=== PATIENT | female | born 1990 | race Caucasian/White ===

== ENCOUNTER → 2017-12-11 16:30 | Outpatient (CLI) | payer OTHER, SELFPAY ==
[2017-12-11 17:25] LABS: Add Manual Diff / Slide Review NO; Basophils Percent Auto 0.3 % (0-2); Eosinophils Percent Auto 1.4 % (2-4); Hematocrit 36.5 % (36-46); Hemoglobin 12.9 g/dL (12.0-16.0); Lymphocytes Percent Auto 18.2 % (25-40); Mean Corpuscular HGB Conc 35.3 % (30-36); Mean Corpuscular Hemoglobin 29.7 PG (26-34); Mean Corpuscular Volume 84.3 fL (80-100); Monocytes Percent Auto 5.7 % (3-14); Neutrophils Absolute Auto 7400 /uL (3000-5900); Neutrophils Percent Auto 74.4 % (50-75); Platelet Count 219 X10^3/uL (150-400); Red Blood Cell Count 4.33 X10^6/uL (4.0-5.2); Red Cell Distribution Width 12.7 % (11.6-14.8); White Blood Cell Count 9.9 X10^3/uL (4.5-11.0)
[2017-12-11 18:30] LABS: Hepatitis B Surface Antigen NEGATIVE s/c (NEGATIVE); Rubella Antibody IgG 18.3 IU/mL (>15)
[2017-12-11 18:35] LABS: HIV 1 and 2 Antibody NEGATIVE (NEGATIVE); Hep C Virus Ab w/Reflex Quant NEGATIVE s/c (NEGATIVE)
[2017-12-13 15:09] LABS: HSV 2 IGG AB < 0.90 index (< 0.90); HSV1IGG 5.46 index (< 0.90)
[2017-12-16 15:42] LABS: Rapid Plasma Reagin NON REACTIVE
== END ==
PROVIDERS: Visit Provider Obstetrics & Gynecology
DX: Z34.81 Encounter for supervision of other normal pregnancy, first trimester (principal)
CPT/HCPCS: 36415; 80055; 86695; 86696; 86703; 86787; 86803; 86850; 86900; 86901; 87077; 87086

== ENCOUNTER → 2018-01-16 16:45 | Outpatient (CLI) | payer OTHER, SELFPAY ==
[2018-01-23 09:16] LABS: AFP, Serum 44.1 ng/mL; Calc Gestational Age 18.9; Cigarette Smoker NOT GIVEN; Donated Egg N; Donor Egg Age NOT GIVEN; Estriol, Free 1.78 ng/mL; Inhibin A, Dimeric 143 pg/mL; Maternal Ethnicity NOT GIVEN; Maternal Weight 203 lbs; Number of Fetuses NOT GIVEN; Previous Pregnancy Down Syndro N; hCG, MoM 0.87; hCG, Serum 15.9 IU/mL
== END ==
PROVIDERS: Visit Provider Obstetrics & Gynecology
DX: Z34.92 Encounter for supervision of normal pregnancy, unspecified, second trimester (principal)
CPT/HCPCS: 36415; 82105; 82677; 84702; 86336

== ENCOUNTER → 2018-02-03 09:09 | Outpatient (CLI) | payer OTHER, SELFPAY ==
--- NOTE | 2018-02-03 09:11 | DI.US.S_ITS ---
PROCEDURE: US OB >= 14 WEEKS FETUS INDICATIONS: 20 WEEK ANATOMY SURVEY OUTSIDE/PRIOR DATING DATA: Last menstrual period (LMP): Not available. LMP-based estimated date of delivery (ISIDRA): 06/13/18. First dating scan (date and location): 11/13/17, by Dr. Kirkpatrick Estimated date of delivery (ISIDRA) from first dating scan: 06/12/18. TECHNIQUE: Real-time scanning was performed of the fetus, with image documentation and biometric measurements. Endovaginal scanning: Not needed for this study. COMPARISON: [facility], , OB >= 14 WEEKS FETUS, 01/16/2018, 16:38. [facility], OB >= 14 WEEKS FETUS, 12/11/2017, 16:20. FINDINGS: General: A single living intrauterine gestation is present. Presentation: Vertex. Placenta: A placenta is circumflex valley at the superior aspect, without previa. Amniotic fluid index: 11.7 cm, normal range is 5-24 cm. heart rate: 149 beats per minute. Maternal cervical canal: 3.7 cm long. Normal lower limit is 2.5 cm. biometrics: Biparietal diameter: 5.3 cm, 22 weeks 0 days Head circumference: 19.3 cm, 21 weeks 4 days Abdominal circumference: 16.4 cm, 21 weeks 3 days Femur length: 3.6 cm, 21 weeks 2 days Estimated gestational age from initial scan: 21 weeks 4 days Composite gestational age from present scan: 21 weeks 4 days Estimated weight and percentile: 421 g, 35th percentile Measurement variability for biometric dating: +/- 7 days from 14 weeks to 15 weeks 6 days gestation, +/- 10 days from 16 weeks to 21 weeks 6 days gestation, +/- 2 weeks from 22 weeks to 27 weeks 6 days gestation, +/- 3 weeks for 28 weeks gestation or later. weight reference: 4500 g or EFW >90/95% is considered macrosomia or large for gestational age. EFW <10% is small for gestational age. EFW 5% or less is considered intra-uterine growth restriction. Anatomic survey: Neuro: Ventricles are non-dilated at less than 10 mm. Cisterna magna is normal at 3-11 mm. Cerebellum is normal in size and morphology. Nuchal skin fold: Normal at less than 6 mm between 14-21 weeks gestational age. Face: Nose and lips, facial profile are not well seen due to positioning. Spine: No evidence for spina bifida. Heart: 4-chambered heart is present, with normal ventricular outflow tracts. Diaphragm: Diaphragm is intact. Stomach: Left-sided stomach is present. Kidneys: No hydronephrosis. Normal is less than 5 mm in 2nd trimester, less than 7 mm in 3rd trimester. Cord: 3-vessel cord has orthotopic insertion. Bladder: Normal in size. Extremities: All 4 extremities identified. IMPRESSION: The superior aspect of the placenta shows circumvallate morphology. No placenta previa or placental abruption is found. Appropriate interval growth, no anomaly is seen but the facial area is poorly visualized due to positioning and followup limited OB ultrasound may be warranted to complete anatomic survey. The delivery date is projected to be centered on 06/12/18, plus or -5 days. Dictated by: Nikhil Sharif M.D. on 02/03/2018 at 11:03 Approved by: Nikhil Sharif M.D. on 02/03/2018 at 11:37
== END ==
PROVIDERS: Visit Provider Obstetrics & Gynecology
DX: Z36.89 Encounter for other specified antenatal screening (principal); Z3A.21 21 weeks gestation of pregnancy
CPT/HCPCS: 76811

== ENCOUNTER 2020-09-18 18:24 | Emergency (ER) | payer OTHER, SELFPAY ==
[2020-09-18 18:55] VITALS: BP 124/78; PULSE 71; RESP 20; TEMP 36.6; O2SAT 100; BMI 29.0
--- NOTE | 2020-09-18 19:00 | DI.RAD.S_ITS ---
PROCEDURE: XR FINGER LT MIN 2V INDICATIONS: slammed in car door TECHNIQUE: AP hand, 2 views of the left thumb acquired. COMPARISON: None. FINDINGS: Bones: No fractures or dislocations. No suspicious bony lesions. Soft tissues: No suspicious soft tissue calcifications. IMPRESSION: No evidence acute bony abnormality of the left thumb Dictated by: Sorin Sanchez M.D. on 09/18/2020 at 19:48 Approved by: Sorin Sanchez M.D. on 09/18/2020 at 19:49
--- NOTE | 2020-09-18 19:14 | PC.NURSE ---
today nurse crushed her finger in the door. she has slight numbness in her thumb and slight bruising. She has not taken any medication for today. She states that her pain in an 5/10 pain with intermittent spurts of 8/10 pain.
--- NOTE | 2020-09-18 20:37 | ED.UPPEXIN ---
HPI - Extremity Injury (Upper) General Chief Complaint: Extremity Injury, Upper Stated Complaint: SMASHED LT THUMB IN CAR DOOR Time Seen by Provider: 09/18/20 20:34 Source: patient Mode of arrival: Ambulatory Limitations: no limitations History of Present Illness HPI narrative: 30-year-old woman with no significant medical history who smashed her left thumb in the car door. She is right hand dominant. The thumb is increasingly tender and she comes in for reassurance that there are no broken bones. Related Data Previous Rx's Medication Instructions Recorded etonogestrel-ethinyl estradiol 1 icr VG Q 3 WEEKS #30 vag ring 07/10/16 [NuvaRing] Allergies Allergy/AdvReac Type Severity Reaction Status Date / Time No Known Drug Allergies Allergy Unknown Unverified 08/07/17 12:31 Review of Systems Review of Systems Narrative: Pertinent positive and negative findings as per HPI Remainder of review of systems is otherwise unremarkable for Constitutional: Fevers, chills, weakness ENT: No sore throat, neck pain, ear pain CV: Chest pain, palpitations, Respiratory: Cough, wheeze, dyspnea GI: Nausea, vomiting, diarrhea, : Dysuria, hematuria, Patient History Surgical History (Updated 11/07/17 @ 11:35 by Olga Bryant) Status post laparoscopic cholecystectomy (~2007) Social History Smoking Status: Never smoker Smoking Status: Never smoker alcohol intake frequency: 0-2 drinks per day Substance Use Type: does not use Exam Narrative Exam Narrative: General: Alert appropriate in no acute distress Respiratory: Able to speak in full sentences, no obvious respiratory distress Skin: No obvious rashes, warm and dry Neurologic: Grossly intact no obvious asymmetries or abnormalities Psych: appropriate insight and affect, cooperative Extremity: Minor contusion to the base of the left thumb over the nail bed, neurovascularly intact distal. Minimal edema Initial Vital Signs Initial Vital Signs: Vital Signs Temperature 97.9 F 09/18/20 18:55 Pulse Rate 71 09/18/20 18:55 Respiratory Rate 20 09/18/20 18:55 Blood Pressure 124/78 09/18/20 18:55 Pulse Oximetry 100 09/18/20 18:55 Course Orders Ordered: ED Orders 09/18/20 19:00 XR finger LT min 2V Stat Discontinued Medications Acetaminophen (Acetaminophen 325 Mg Tablet) 325 mg PO NOW ONE Stop: 09/18/20 20:40 Last Admin: 09/18/20 20:51 Dose: 325 mg Documented by: MELVA Ibuprofen (Ibuprofen 400 Mg Tablet) 400 mg PO NOW ONE Stop: 09/18/20 20:40 Last Admin: 09/18/20 20:51 Dose: 400 mg Documented by: MELVA Vital Signs Vital signs: Vital Signs - 8 hr 09/18/20 20:56 Pulse Rate 74 Respiratory Rate 12 Blood Pressure 122/71 Pulse Oximetry 74 L MDM - Extremity Injury (Upper) Imaging Data X-ray thumb: Radiologist's Impression: FINDINGS: Bones: No fractures or dislocations. No suspicious bony lesions. Soft tissues: No suspicious soft tissue calcifications. IMPRESSION: No evidence acute bony abnormality of the left thumb Dictated by: Sorin Sanchez M.D. on 09/18/2020 at 19:48 MDM Narrative Medical decision making narrative: 30-year-old woman with a thumb injury after slamming it in her car door. No fractures. Aluminum splint is placed over her thumb for comfort. She is safe for home discharge Discharge Plan Departure Patient Disposition: Home Clinical Impression: Finger injury Qualifiers: Encounter type: initial encounter Laterality: left Qualified Code(s): S69.92XA - Unspecified injury of left wrist, hand and finger(s), initial encounter Instructions: DI for Finger Sprain Activity Restrictions/Additional Instructions: Thank you for coming in today You did not break any bones in your thumb. The area clearly is irritated and using the small splint that we made will be helpful so that you simply do not continue hitting the area and causing herself discomfort. Use the splint as long as it is comfortable and helping. With the injury to the active growing part of the nail bed, you may notice some abnormalities with your thumb nail as it grows out. Using 400 mg of ibuprofen (2 mnkz-qwq-kkztuww pills) and 1 Tylenol every 6 hours can be very helpful in controlling pain. If your noticing new or worsening symptoms, please feel free to return to the ER Prescriptions: No Action etonogestrel-ethinyl estradiol [NuvaRing] 1 EACH ring 1 icr VG Q 3 WEEKS Qty: 30 RF: 3
[2020-09-18] MEDS: IBUPROFEN 400 MG TABLET PO (20:51)
[2020-09-18] MEDS: ACETAMINOPHEN 325 MG TABLET PO (20:51)
[2020-09-18 20:56] VITALS: BP 122/71; PULSE 74; RESP 12; O2SAT 74
== END 2020-09-18 20:57 | disposition home or self-care (01) ==
PROVIDERS: Emergency Provider Emergency Medicine
DX: S69.92XA Unspecified injury of left wrist, hand and finger(s), initial encounter (principal); W23.0XXA Caught, crushed, jammed, or pinched between moving objects, initial encounter
CPT/HCPCS: 29130; 73140; 99283

== ENCOUNTER 2021-07-20 16:58 | Emergency (ER) | payer OTHER, SELFPAY ==
[2021-07-20 17:12] VITALS: BP 124/58; PULSE 66; RESP 16; TEMP 36.8; O2SAT 97; BMI 30.7
--- NOTE | 2021-07-20 18:08 | DI.RAD.S_ITS ---
PROCEDURE: XR TIBIA FIBULA LT 2V INDICATIONS: felt pop in back of calf with walking, now pain TECHNIQUE: 2 views of the tibia and fibula were acquired. COMPARISON: None. FINDINGS: Bones: No fractures or dislocations. No suspicious bony lesions. Soft tissues: No suspicious soft tissue calcifications or masses. IMPRESSION: No osseous abnormality. Consider further evaluation with ultrasound of the calf. Dictated by: Tony Lees M.D. on 07/20/2021 at 18:31 Approved by: Tony Lees M.D. on 07/20/2021 at 18:33
--- NOTE | 2021-07-20 18:13 | ED_ITS ---
HPI - Extremity Injury (Lower) <RIKKI Abarca - Last Filed: 07/20/21 20:24> General Chief Complaint: Extremity Injury, Lower Stated Complaint: Howells something pop in left calf Time Seen by Provider: 07/20/21 18:01 Source: patient Mode of arrival: Ambulatory History of Present Illness HPI Narrative: 31-year-old female presents to the emergency department complaining of left calf pain after she got up from a desk in started walking and she felt a pop in her left calf with pain afterwards. She states it is dull and then it was burning pain, and now it feels like a muscle spasm. Patient denies any current antibiotic use, denies any changes to her ambulation, denies any weakness, denies any skin changes, states she also has pain on the lateral aspect of her left christopher. She denies any swelling in her lower extremity, states that she took ibuprofen prior to her arrival which helped a little bit. Patient states that she took a home test yesterday, and it was positive. Related Data Home Medications Medication Instructions Recorded Confirmed drospiren-paz.estrad-l.mefol 3 1 tab PO DAILY 03/29/21 03/29/21 mg-0.03 mg-0.451 mg(21)/0.451 mg(7)tablet Previous Rx's Medication Instructions Recorded lidocaine 5 % topical patch 1 patch TOPICAL DAILY #15 ea 07/20/21 (Lidoderm) Allergies Allergy/AdvReac Type Severity Reaction Status Date / Time Iodinated Contrast Media Allergy Severe Unconscious Verified 03/29/21 13:15 Review of Systems <RIKKI Abarca - Last Filed: 07/20/21 20:24> Review of Systems Narrative: General: denies fever, chills, malaise, sweats, fatigue Head/Neck: denies headache, neck pain, dizziness Eyes: denies visual changes, eye pain Cardio: denies chest pain, palpitations, edema Respiratory: denies dyspnea, cough, orthopnea GI: denies abdominal pain, nausea, vomiting, or diarrhea : denies dysuria, hematuria, urinary retention, frequency or incontinence MSK: denies joint pain, muscle weakness, endorses left calf pain and christopher pain Skin: denies rash, itching, skin lesions or other Neuro: denies numbness, tingling Patient History <RIKKI Abarca - Last Filed: 07/20/21 20:24> Medical History Spontaneous vaginal delivery Surgical History Status post laparoscopic cholecystectomy (~2007) Social History Smoking Status: Never smoker Smoking Status: Never smoker alcohol intake frequency: 0-2 drinks per day Substance Use Type: does not use Exam <RIKKI Abarca - Last Filed: 07/20/21 20:24> Narrative Exam Narrative: Independently reviewed vitals signs and nursing notes. General: cooperative, comfortable, in no acute distress, well developed and well groomed Head: atraumatic, symmetrical facial expressions Neck: supple, atraumatic, without lymphadenopathy. Eyes: pupils equal round and reactive, EOMI, conjunctiva normal Nose: nares patent, no rhinorrhea Mouth/Throat: uvula midline, moist mucus membranes Cardiovascular: regular rate and rhythm, no peripheral edema, warm extremities Respiratory: normal effort, able to speak in complete sentences, no audible wheezing, stridor, or rales. No retractions or tachypnea. GI: abdomen soft, nontender to palpation, nondistended, no masses, no exquisite tenderness with exam, without guarding or rebound. MSK: moves all extremities, ambulatory w/steady gait, neurovascularly intact, no weakness, negative Frederick sign, no dependent edema, patient has tenderness l ateral to or tibia and medial over the distal calf area. No discernible edema, no discoloration, Achilles tendon is nontender to palpation and feels intact. Skin: brisk capillary refill, no rash, no erythema Neuro: normal speech and cognition, A&O x3, normal tone Psych: mental status is grossly normal, congruent mood, normal affect, pleasant and cooperative Initial Vital Signs Initial Vital Signs: Vital Signs Temperature 98.3 F 07/20/21 17:12 Pulse Rate 66 07/20/21 17:12 Respiratory Rate 16 07/20/21 17:12 Blood Pressure 124/58 L 07/20/21 17:12 Pulse Oximetry 97 07/20/21 17:12 <Suzanne Haas DO - Last Filed: 07/29/21 08:50> Initial Vital Signs Initial Vital Signs: Vital Signs Temperature 98.3 F 07/20/21 17:12 Pulse Rate 66 07/20/21 17:12 Respiratory Rate 16 07/20/21 17:12 Blood Pressure 124/58 L 07/20/21 17:12 Pulse Oximetry 97 07/20/21 17:12 Course <RIKKI Abarca - Last Filed: 07/20/21 20:24> Orders Ordered: Discontinued Medications Lidocaine (Lidocaine Patch 1 Each Adh..Patch) 1 each TOP NOW ONE Stop: 07/20/21 18:12 Last Admin: 07/20/21 18:15 Dose: 1 each Documented by: MAUREEN Vital Signs Vital signs: Vital Signs - 8 hr 07/20/21 17:12 Temperature 98.3 F Pulse Rate 66 Respiratory Rate 16 Blood Pressure 124/58 L Pulse Oximetry 97 <Suzanne Haas DO - Last Filed: 07/29/21 08:50> Orders Ordered: Discontinued Medications Lidocaine (Lidocaine Patch 1 Each Adh..Patch) 1 each TOP NOW ONE Stop: 07/20/21 18:12 Last Admin: 07/20/21 18:15 Dose: 1 each Documented by: MAUREEN Vital Signs Vital signs: Vital Signs - 8 hr 07/20/21 17:12 Temperature 98.3 F Pulse Rate 66 Respiratory Rate 16 Blood Pressure 124/58 L Pulse Oximetry 97 MDM - Extremity Injury (Lower) <RIKKI Abarca - Last Filed: 07/20/21 20:24> Imaging Data Extremity x-ray #1: Radiologist's Impression: PROCEDURE:? XR TIBIA FIBULA LT 2V ? INDICATIONS:? felt pop in back of calf with walking, now pain ? TECHNIQUE:? 2 views of the tibia and fibula were acquired.? ? COMPARISON:? None. ? FINDINGS:? ? Bones:? No fractures or dislocations.? No suspicious bony lesions.? ? Soft tissues:? No suspicious soft tissue calcifications or masses.? ? IMPRESSION:? No osseous abnormality. ? Consider further evaluation with ultrasound of the calf.? ? Dictated by: Tony Lees M.D. on 07/20/2021 at 18:31 ? ? Approved by: Tony Lees M.D. on 07/20/2021 at 18:33 ? MDM Narrative Medical decision making narrative: 31-year-old female presents to the emergency department complaining of right calf pain when she stood up from her desk and started walking today, she states it felt like a pop. She has been ambulatory, denies significant pain at this time, only complainsof dull sensation similar to a charley horse. X-ray of patient's patient's left tib fib was negative for acute fracture dislocation, suspicious soft tissue calcifications, or air. Patient did not have any palpable lump, fluctuance, erythema, discoloration. Patient is ambulatory, without any range of motion or activity limitations. Took ibuprofen prior to arrival. Give patient a lidocaine patch, she tested positive for yesterday on a home test, no other medications were given, recommend patient not taking any NSAIDs throughout the duration of her . This is an L and I: L and I claim #[id number]. Patient does not have a primary care provider, she was given a referral to establish 1, encouraged to follow up to get at referral for physical therapy. Patient understands and will do so accordingly. Patient is appropriate and amenable to discharge home. Vital signs are stable on repeat examination is unremarkable. Patient has been informed of results. Patient has been given strict return to ER precautions for any new or worsening symptoms. Patient understands to follow up closely with outpatient providers as instructed. Patient understands plan and agrees to discharge home. All questions and concerns answered at this time. Discharge Plan Departure Patient Disposition: Home Clinical Impression: Work related injury, Strain of left calf muscle Instructions: Calf Muscle Strain Activity Restrictions/Additional Instructions: *You have been diagnosed with most likely a strained calf muscle. This could also be something like christopher splints which is at medial tibial stress syndrome. This is usually treated with anti-inflammatories, ice, rest and sometimes physical therapy. Because you are , the only safe medications for you at this time for this are Tylenol, and lidocaine patches, you may use ice, or use elastic compression bandages to help prevent any swelling of this area. I would encourage you to do some gentle flexibility exercises and wear supportive shoes. Please call [phone] to establish care with a primary care provider. They can make you a referral for physical therapy. Please establish care with an OBGYN for your 1st appointment, and congratulations. Please do not take any ibuprofen while you are , it can be harmful. The you for trusting us with your care, follow-up with orthopedics if this is ongoing, try to stay off your feet for the next couple of days if you can. Feel better soon. Please do not use any Voltaren gel as this is also contraindicated in . *What to do: *Please continue to take your regular medications as directed. [ x] New medication prescriptions sent to your pharmacy: [[facility] ] [ ] New medication written as a paper prescription [ ] No new medications given *Please follow up with your primary care provider in 2-3 days, call for an appointment. Let them know you were seen in the Emergency Department and that we asked that you be seen for follow-up. We will electronically transmit a record of today's note if your PCP is in our system *If you do not have a primary care provider please contact [phone] to establish care with one of the [facility] primary care providers. *Return to Emergency Department if you should have any new, worsening or concerning symptoms, such as [fever greater than 101F, chills, worsening pain, persistent vomiting or other bothersome symptoms] Prescriptions: New lidocaine [Lidoderm] 5 % adhesive patch,medicated 1 patch topical DAILY Qty: 15 0RF Rx Instructions: leave on most painful area for up to 12 hrs No Action drospirenone-e.estradiol-lm.FA 3-0.03-0.451 mg (21) (7) tablet 1 tab PO DAILY 0RF <Suzanne Haas, - Last Filed: 07/29/21 08:50> [facility] ED Attending Salma Attestation: I was immediately available in the department for consultation. Documentation has been reviewed.
[2021-07-20] MEDS: LIDOCAINE PATCH 1 EACH ADH..PATCH TOP (18:15)
== END 2021-07-20 18:34 | disposition home or self-care (01) ==
PROVIDERS: Emergency Provider Nurse Practitioner Critical Care Medicine
DX: S86.912A Strain of unspecified muscle(s) and tendon(s) at lower leg level, left leg, initial encounter (principal); X58.XXXA Exposure to other specified factors, initial encounter; Y93.01 Activity, walking, marching and hiking; Y99.0 Civilian activity done for income or pay
CPT/HCPCS: 73590; 99283

== ENCOUNTER → 2021-09-13 17:09 | Outpatient (CLI) | payer OTHER, SELFPAY ==
[2021-09-13 18:15] LABS: Add Manual Diff / Slide Review NO; Basophils Absolute Auto 0 /uL (0-100); Basophils Percent Auto 0.5 % (0-2); Eosinophils Absolute Auto 300 /uL (0-450); Eosinophils Percent Auto 3.1 % (2-4); Hematocrit 34.9 % (36-46); Hemoglobin 12.2 g/dL (12.0-16.0); Lymphocytes Absolute Auto 1800 /uL (1100-4500); Lymphocytes Percent Auto 18.5 % (25-40); Mean Corpuscular Hemoglobin 29.4 PG (26-34); Monocytes Absolute Auto 500 /uL (0-900); Monocytes Percent Auto 5.3 % (3-14); Neutrophils Absolute Auto 6900 /uL (1500-7000); Neutrophils Percent Auto 72.6 % (50-75); Platelet Count 216 X10^3/uL (150-400); Red Blood Cell Count 4.15 X10^6/uL (4.0-5.2); White Blood Cell Count 9.5 X10^3/uL (4.5-11.0)
[2021-09-14 17:17] LABS: Hepatitis B Surface Antigen NEGATIVE s/c (NEGATIVE); Rubella Antibody IgG 18.9 IU/mL (>15)
[2021-09-14 17:31] LABS: HIV 1 & 2 Ab/Ag 4th Gen Combo NEGATIVE (NEGATIVE); Hep C Virus Ab w/Reflex Quant NEGATIVE s/c (NEGATIVE)
[2021-09-15 01:09] LABS: RPR Screen Non Reactive (Non Reactive)
[2021-09-15 11:38] LABS: Varicella IgG Antibody 370 index (Immune >165)
== END ==
PROVIDERS: Referring Provider Obstetrics & Gynecology; Visit Provider Obstetrics & Gynecology
DX: Z34.81 Encounter for supervision of other normal pregnancy, first trimester (principal)
CPT/HCPCS: 36415; 80055; 86787; 86803; 86850; 86900; 86901; 87389

== ENCOUNTER → 2021-10-11 16:35 | Outpatient (CLI) | payer OTHER, SELFPAY ==
[2021-10-11 20:01] LABS: Appearance Urine UA CLEAR; Bilirubin Urine UA NEGATIVE (NEGATIVE); Color Urine UA YELLOW; Glucose Urine UA NEGATIVE (Negative); Ketones Urine UA NEGATIVE (NEGATIVE); Leukocyte Esterase Urine UA TRACE (NEGATIVE); Nitrite Urine UA NEGATIVE (Negative); Occult Blood Urine UA NEGATIVE (Negative); Protein Urine UA NEGATIVE (Negative); Urobilinogen Urine UA 0.2 E.U./dL (0.2)
[2021-10-11 20:14] LABS: Bacteria Urine Occasional (0-1); RBC Urine None Seen (0-5/HPF); Squamous Epithelial Cell Urine 1-5 /HPF (0-5/HPF); WBC Urine 1-5/HPF (0-5/HPF)
== END ==
PROVIDERS: Visit Provider Obstetrics & Gynecology
DX: Z34.81 Encounter for supervision of other normal pregnancy, first trimester (principal)
CPT/HCPCS: 81003; 81015; 87086

== ENCOUNTER → 2021-10-11 17:06 | Outpatient (CLI) | payer OTHER, SELFPAY ==
[2021-10-13 20:48] LABS: AFP Value 29.4 ng/mL (.); Insulin Dep Diabetes No (.); OSBR Risk 1IN 10000 (.); Results Report (.); Test Results *Screen Negative* (.)
== END ==
PROVIDERS: Referring Provider Obstetrics & Gynecology; Visit Provider Obstetrics & Gynecology
DX: Z34.82 Encounter for supervision of other normal pregnancy, second trimester (principal); Z3A.16 16 weeks gestation of pregnancy
CPT/HCPCS: 36415; 81003; 81015; 82105; 87086

== ENCOUNTER → 2021-11-22 09:16 | Outpatient (CLI) | payer OTHER, SELFPAY ==
--- NOTE | 2021-11-22 09:16 | DI.US.S_ITS ---
PROCEDURE: US OB >= 14 WEEKS FETUS INDICATIONS: anatomy scan OUTSIDE/PRIOR DATING DATA: Last menstrual period (LMP): 06/21/2021. LMP-based estimated date of delivery (ISIDRA): 03/28/2022. First dating scan (date and location): 09/13/2021. Estimated date of delivery (ISIDRA) from first dating scan: 03/24/2022. TECHNIQUE: Real-time scanning was performed of the fetus, with image documentation and biometric measurements. COMPARISON: [facility], OB >= 14 WEEKS FETUS, 02/03/2018, 9:49. FINDINGS: General: A single living intrauterine gestation is present. Presentation: Vertex. Placenta: Placental position is posterior , without previa. Amniotic fluid index: 15.3 cm, normal range is 5-24 cm. heart rate: 152 beats per minute. Maternal cervical canal: 4.9 cm long. Normal lower limit is 2.5 cm. biometrics: Biparietal diameter: 54 mm; 22 weeks 2 days Head circumference: 200 mm; 22 weeks 1 day Abdominal circumference: 180 mm; 22 weeks 6 days Femur length: 37 mm 21 weeks 6 days Estimated gestational age by initial OB ultrasound: 22 weeks 0 days Composite gestational age from present scan: 22 weeks 2 days Estimated weight and percentile: 498 g, which is at the 63rd percentile for gestational age Anatomic survey: Neuro: Ventricles are non-dilated at less than 10 mm. Cisterna magna is normal at 3-11 mm. Cerebellum is normal in size and morphology. Nuchal skin fold: Normal at less than 6 mm between 14-21 weeks gestational age. Face: Nose and lips, facial profile are normal. Spine: No evidence for spina bifida. Heart: 4-chambered heart is present, with normal ventricular outflow tracts. Diaphragm: Diaphragm is intact. Stomach: Left-sided stomach is present. Kidneys: No hydronephrosis. Normal is less than 5 mm in 2nd trimester, less than 7 mm in 3rd trimester. Cord: 3-vessel cord has orthotopic insertion. Bladder: Normal in size. Extremities: All 4 extremities identified. IMPRESSION: 1. Single living intrauterine gestation. 2. Normal survey of anatomy. We strive to produce accurate, complete, and clear reports of imaging services. To assist us in improving patient care, this report was composed using standard report templates and voice recognition software. Therefore, it may contain abnormal punctuation, insertions and/or omissions. Occasional wrong-word or sound-alike substitutions may occur. Though we review the report and make efforts to correct it, we do recommend that the report be read carefully in proper context to recognize any text inaccuracies. Dictated by: Modesta Dudley M.D. on 11/22/2021 at 12:01 Transcribed by: DANA on 11/22/2021 at 12:05 Approved by: Modesta Dudley M.D. on 11/22/2021 at 15:55
== END ==
PROVIDERS: Referring Provider Obstetrics & Gynecology; Visit Provider Obstetrics & Gynecology
DX: Z34.82 Encounter for supervision of other normal pregnancy, second trimester (principal); Z3A.22 22 weeks gestation of pregnancy
CPT/HCPCS: 76811

== ENCOUNTER → 2021-12-19 14:38 | Outpatient (CLI) | payer OTHER, SELFPAY ==
[2021-12-19 16:44] LABS: Hemoglobin 11.3 g/dL (12.0-16.0)
[2021-12-19 17:17] LABS: GTT (PREG) 1 Hour PP 50gm Dose 108 mg/dL (76-139)
== END ==
PROVIDERS: Referring Provider Obstetrics & Gynecology; Visit Provider Obstetrics & Gynecology
DX: Z34.82 Encounter for supervision of other normal pregnancy, second trimester (principal); Z3A.26 26 weeks gestation of pregnancy
CPT/HCPCS: 36415; 82950; 85014; 85018

== ENCOUNTER 2022-03-06 10:42 | Emergency (ER) | payer OTHER, SELFPAY ==
[2022-03-06 10:53] VITALS: BMI 33.9
--- NOTE | 2022-03-06 11:08 | ED_ITS ---
HPI - General Adult General Chief complaint: Shortness of Breath/Dyspnea Stated complaint: flu like symptoms Time Seen by Provider: 03/06/22 11:05 Source: patient Mode of arrival: Family Vehicle Limitations: no limitations History of Present Illness HPI narrative: 31-year-old female. G4. Thirty-eight weeks EGA. Has been having which she describes as both [place] contractions and also labor contractions for the past couple days. She also thought she lost her mucus plug couple days ago. She is not had her water break. No vaginal bleeding. Is also having upper respiratory infection/influenza like symptoms for the past couple days. She was sent to the emergency department by labor and delivery for evaluation. She denies chest pain. No shortness of breath. No skin rashes. Related Data Home Medications Medication Instructions Recorded Confirmed prenat.vits,karolyn,[id number] 1 tab PO DAILY 09/06/21 03/06/22 Previous Rx's Medication Instructions Recorded oseltamivir 75 mg capsule 75 mg PO Q12H 5 days #10 caps 03/06/22 Allergies Allergy/AdvReac Type Severity Reaction Status Date / Time Iodinated Contrast Media Allergy Severe Unconscious Verified 03/06/22 11:01 Review of Systems Review of Systems ROS Unobtainable: All systems reviewed & are unremarkable except as noted in HPI and below Patient History Medical History Anxiety Asthma (~1993) Eczema (~1992) Hepatitis C (~2018) Surgical History (Updated 09/25/21 @ 20:55 by Darlene Brown) Anesthesia Status post laparoscopic cholecystectomy (~2007) Family History (Updated 09/25/21 @ 20:55 by Darlene Brown) Grandmother Hypertension Diabetes mellitus Cardiac arrhythmia Hyperlipidemia Mother Lymphedema Grandmother Pancreatic cancer Social History marital status: number of children: 3 household members: spouse and children lives independently: Yes housing: house pets and animals: Yes (2 dogs, aware of toxoplasmosis) education level: college ([employer]'s degree) occupational status: employed (Teacher) current occupational exposures/hazards: No special toyin needs: No travel history: over 6 months ago seatbelt use: always water heater temp set < 120 deg: Yes working smoke detector in home: Yes fire extinguisher in home: Yes carbon monox detector in home: Yes firearms in home: No do you feel safe at home: Yes Smoking Status: Never smoker second hand exposure: No alcohol intake: former substance use type: does not use during the past year weight has: remained stable well-balanced diet: daily or most days daily servings fruits/ve-4 caffeine: Yes Type(s) of exercise: walking and bicycling Smoking Status: Never smoker alcohol intake frequency: 0-2 drinks per day Substance Use Type: does not use Exam Initial Vital Signs Initial Vital Signs: Vital Signs Temperature 99.7 F H 03/06/22 11:58 Pulse Rate 100 H 03/06/22 11:58 Blood Pressure 121/60 03/06/22 11:58 Pulse Oximetry 97 03/06/22 11:58 Const General: comfortable, well developed and No ill appearing HENMT Head: normal to inspection and normocephalic Resp Effort & Inspection: normal respiratory effort Auscultation: clear to auscultation bilaterally Cardio Rate: regular rate Rhythm: regular rhythm GI Other: Gravid abdomen Skin General: no rashes or lesions noted Neuro General: patient alert, patient awake and moves all extremities Extrem General: normal to inspection and capillary refill normal Psych Appearance: grossly normal and well kempt Course Orders Ordered: ED Orders 03/06/22 10:59 Covid-19 + FLU A/B + RSV - PCR Stat Discontinued Medications Sodium Chloride (Normal Saline 0.9%) 1,000 mls @ 1,000 mls/hr IV BOLUS ONE Stop: 03/06/22 15:37 Last Admin: 03/06/22 15:10 Dose: 1,000 mls/hr Documented By: EARL Oseltamivir Phosphate (Oseltamivir 75 Mg Capsule) 75 mg PO NOW ONE Stop: 03/06/22 13:46 Last Admin: 03/06/22 13:57 Dose: 75 mg Documented By: EARL Vital Signs Vital signs: Vital Signs - 8 hr 03/06/22 11:58 03/06/22 12:03 03/06/22 14:58 Temperature 99.7 F H 99.7 F H 98.0 F Pulse Rate 100 H 100 H 92 H Respiratory Rate 20 Blood Pressure 121/60 121/60 116/57 L Pulse Oximetry 97 97 98 Oxygen Delivery Method Room Air Room Air Medical Decision Making Lab Data Labs: Lab Results 03/06/22 Range/Units 10:59 SARS-CoV-2 (PCR) Negative (Negative) Influenza A (RT-PCR) Flu a positive H (NEGATIVE) Influenza B (RT-PCR) Flu b negative (NEGATIVE) RSV (PCR) Negative (Negative) MDM Narrative Medical decision making narrative: Patient is flu A positive. Discussed the case with Dr. Kirkpatrick on-call for OB who recommended Tamiflu. She was given a 1st dose here in the ER. Patient also received an NST by L and D staff. I was informed that it was a reactive NST in the patient did have some contractions but not regular. Plan to be is to discharge home and follow-up as outpatient. Patient understands return precautions. Will send home with a prescription for Tamiflu. Discharge Plan Departure Patient Disposition: Home Clinical Impression: Influenza A Instructions: Influenza Activity Restrictions/Additional Instructions: Be sure that you are staying hydrated. Keep all scheduled OB appointments. A prescription for Tamiflu was sent to the pharmacy of your choice. You can take Tylenol for any fevers or body aches. Return to the emergency department for any new or worsening symptoms. Prescriptions: New oseltamivir 75 mg capsule 75 mg PO Q12H 5 Days Qty: 10 0RF No Action prenat.vits,karolyn,[id number] Tablet 1 tab PO DAILY Referrals: Miscellaneous,Doctor, MD [Primary Care Provider] -
[2022-03-06 11:58] VITALS: BP 121/60; PULSE 100; TEMP 37.6; O2SAT 97
[2022-03-06 12:03] VITALS: BP 121/60; PULSE 100; RESP 20; TEMP 37.6; O2SAT 97; BMI 33.9
[2022-03-06 12:04] LABS: Influenza B - CEPHEID Flu B NEGATIVE (NEGATIVE); Respiratory Syncytial Virus Negative (Negative)
[2022-03-06 12:21] LABS: COVID-19 CEPHEID 4-PLEX PCR Negative (Negative)
[2022-03-06 12:23] LABS: Influenza A - CEPHEID Flu A POSITIVE (NEGATIVE)
[2022-03-06] MEDS: OSELTAMIVIR 75 MG CAPSULE PO (13:57)
--- NOTE | 2022-03-06 14:35 | PC.NURSE ---
OB DAVID Peraza preformed NST on pt. per OB MD request. Reactive NST. Baseline of 155 with accelerations, moderate variability and no decelerations. Category 1. Pt contrating every 7-9 minutes. Palpate as moderate. MD OB aware.
[2022-03-06 14:58] VITALS: BP 116/57; PULSE 92; TEMP 36.7; O2SAT 98
[2022-03-06] MEDS: SODIUM CHLORIDE 0.9% 1,000 ML 1000 ML IV (15:10)
[2022-03-06 17:09] VITALS: BP 122/65; PULSE 95; RESP 16; O2SAT 98
== END 2022-03-06 17:13 | disposition home or self-care (01) ==
PROVIDERS: Emergency Provider Emergency Medicine
DX: J10.1 Influenza due to other identified influenza virus with other respiratory manifestations (principal); Z20.822 Contact with and (suspected) exposure to COVID-19
CPT/HCPCS: 0241U; 99282; 99284

== ENCOUNTER → 2022-03-15 15:22 | Outpatient (CLI) | payer OTHER, SELFPAY ==
[2022-03-16 12:51] LABS: Strep Grp B PCR NEG for Grp B Strep
== END ==
PROVIDERS: Visit Provider Obstetrics & Gynecology
DX: Z34.83 Encounter for supervision of other normal pregnancy, third trimester (principal); Z3A.38 38 weeks gestation of pregnancy
CPT/HCPCS: 87653

== ENCOUNTER 2022-03-27 20:00 | Inpatient (IN) | payer OTHER, SELFPAY ==
[2022-03-27 21:20] LABS: Add Manual Diff / Slide Review NO; Basophils Absolute Auto 100 /uL (0-100); Basophils Percent Auto 0.6 % (0-2); Eosinophils Absolute Auto 0 /uL (0-450); Eosinophils Percent Auto 0.5 % (2-4); Hematocrit 34.8 % (36-46); Hemoglobin 11.7 g/dL (12.0-16.0); Lymphocytes Absolute Auto 1900 /uL (1100-4500); Lymphocytes Percent Auto 19.4 % (25-40); Mean Corpuscular HGB Conc 33.6 % (30-36); Mean Corpuscular Volume 86.4 fL (80-100); Monocytes Absolute Auto 600 /uL (0-900); Monocytes Percent Auto 6.4 % (3-14); Neutrophils Absolute Auto 7100 /uL (1500-7000); Neutrophils Percent Auto 73.1 % (50-75); Platelet Count 219 X10^3/uL (150-400); Red Blood Cell Count 4.03 X10^6/uL (4.0-5.2); Red Cell Distribution Width 13.8 % (11.6-14.8); White Blood Cell Count 9.8 X10^3/uL (4.5-11.0)
[2022-03-27 21:33] LABS: COVID19 -Nasal RAPID Negative (Negative)
[2022-03-27] MEDS: OXYTOCIN PREMIX 30 UNIT/500 ML PLAST..BAG 200 UNIT IV (21:36)
[2022-03-27] MEDS: LIDOCAINE 1% 20 ML (21:40)
--- NOTE | 2022-03-27 22:05 | PM.OBHP.IH.1 ---
OB HPI Date/Time Date of admission: 03/27/22 Date Patient Seen: 03/27/22 History of Present Condition Chief complaint: observation of labor ISIDRA Calculator Estimated Delivery Date Method Current WG Current Estimate 03/28/22 LMP (Uncertain) 39w 6d Estimated Gestational Age (weeks): 39w6d : 5 Para: 3 Narrative: Pt is a 31yo at 39w6d who presented with regular painful contractions. She reports contractions starting earlier this morning, increasing in frequency and intensity, now every 5 minutes. She denies any vaginal bleeding or LOF. She is feeling her baby move regularly. The pts was without complications. care: good care, initiated at week # (12) and pounds weight gain (17) Dating criteria OB: LMP confirmed by 1st trimester US Ultrasounds: normal 1st trimester US and normal mid trimester US Obstetrical complications: none Medical complications OB: none Preadmission Labs Last OB Lab Results: Blood Type O Positive 09/13/21 17:26 Antibody Screen Negative 09/13/21 17:26 Hematocrit 34.8 % (36-46) L 03/27/22 21:05 Hemoglobin 11.7 g/dL (12.0-16.0) L 03/27/22 21:05 Hepatitis B Surface Antigen Negative s/c (NEGATIVE) 09/13/21 17:26 Hepatitis C Antibody Negative s/c (NEGATIVE) 09/13/21 17:26 Rubella Antibody 18.9 IU/mL (>15) 09/13/21 17:26 Varicella-Zoster IgG Antibody 370 index (Immune >165) 09/13/21 17:26 Glucose 1 Hour 108 mg/dL (76-139) 12/19/21 15:43 Group B Streptococcus (PCR) Neg for grp b strep 03/15/22 15:22 -: Chlamydia screen: negative, Gonorrhea screen: negative and Urine: negative -: PAP smear: Normal Genetic Screens: Cell-free DNA: Normal and Alpha-fetoprotein: Normal External Labs -: Urine: negative Prior (ies) Past Pregnancies Del. Date GA/Weeks Labor Lgth Wt Sex Route Outcome Anesthesia Place Delv Breastfeed Preg Comp Name 01/11/16 40 17 7 lb 12 oz Female forceps live - full term IH N/A none Kelsey 09/08/17 7 spontaneous 06/17/18 41 6 8 lb 5 oz Female vaginal live - full term [place], [place] 7-8 months none Ganesh 09/28/19 41 16 8 lb 7 oz Female vaginal live - full term [place], [place] 9 months none [place] Evaluation Evaluation Baseline heart rate: 130 Variability: Moderate (11-25) monitor accelerations: Present Monitor Decelerations: Absent Contraction Frequency (minutes): 2 Uterine Contraction Intensity: Strong/Firm Status: Category l Dilation (cm): 10 Effacement (%): 100 station: +2 PFS Medical History Anxiety Asthma (~1993) Eczema (~1992) Hepatitis C (~2018) Surgical History (Updated 09/25/21 @ 20:55 by Darlene Brown) Anesthesia Status post laparoscopic cholecystectomy (~2007) Family History (Updated 09/25/21 @ 20:55 by Darlene Brown) Grandmother Hypertension Diabetes mellitus Cardiac arrhythmia Hyperlipidemia Mother Lymphedema Grandmother Pancreatic cancer Social History marital status: number of children: 3 household members: spouse and children lives independently: Yes housing: house pets and animals: Yes (2 dogs, aware of toxoplasmosis) education level: college ([employer]i's degree) occupational status: employed (Teacher) current occupational exposures/hazards: No special toyin needs: No travel history: over 6 months ago seatbelt use: always water heater temp set < 120 deg: Yes working smoke detector in home: Yes fire extinguisher in home: Yes carbon monox detector in home: Yes firearms in home: No do you feel safe at home: Yes Smoking Status: Never smoker second hand exposure: No alcohol intake: former substance use type: does not use during the past year weight has: remained stable well-balanced diet: daily or most days daily servings fruits/ve-4 caffeine: Yes Type(s) of exercise: walking and bicycling Meds Home Medications and Allergies Home Medications Medication Instructions Recorded Confirmed Type prenat.vits,karolyn,bzg-[id number] 1 tab PO DAILY 09/06/21 03/27/22 History Allergies Allergy/AdvReac Type Severity Reaction Status Date / Time Iodinated Contrast Media Allergy Severe Unconscious Verified 03/26/22 15:13 OB Exam Narrative Exam Narrative: Gen: NAD, sitting comfortably in bed, appears well CV: RRR, no murmurs Resp: clear to auscultation bilaterally Abd: soft, nontender, gravid Ext: no edema Objective Labs Result Diagrams: 03/27/22 21:05 Labs: Laboratory Results - last 24 hr 03/27/22 03/27/22 21:05 21:05 WBC 9.8 RBC 4.03 Hgb 11.7 L Hct 34.8 L MCV 86.4 MCH 29.0 MCHC 33.6 RDW 13.8 Plt Count 219 Neut % (Auto) 73.1 Lymph % (Auto) 19.4 L [place] % (Auto) 6.4 Eos % (Auto) 0.5 L Baso % (Auto) 0.6 Neut # (Auto) 7100 H Lymph # (Auto) 1900 [place] # (Auto) 600 Eos # (Auto) 0 Baso # (Auto) 100 SARS-CoV-2 (PCR) Negative Assessment and Plan Assessment and Plan Assessment and Plan narrative: 31yo [id number] at 39w6d here in active labor, fully dilated. GBS negative, Rh positive. No complications with . - Expectant management, anticipate - FHT reassuring - Natural methods for pain control - GBS negative, no prophylaxis indicated
--- NOTE | 2022-03-27 22:11 | PM.OBPRVD ---
Labor & Delivery Delivery date: 03/27/22 Intrapartal Events: None Cervical ripening method: none Induction method: none Delivery monitor: external FHT and external uterine Route of delivery: Episiotomy description: None L&D Laceration Description: Perineal - 1st Degree Delivery repair: vicryl Quantitative Blood Loss: 350 Anesthesia Type: None Complications: None Narrative: PROCEDURE: at 39w6d presented in active labor and was admitted to Labor and Delivery. The patient progressed through the 1st stage over 7 hours, including laboring time at home. Pain was controlled with natural methods. She had SROM while pushing with clear fluid present. The patient progressed through the 2nd stage over 6 minutes and delivered a viable female infant with APGARs 9/9 at 21:32 via without complications. The cord partially avulsed at delivery, and was therefore cut and clamped immediately. The perineum and vagina were inspected with 1st degree perineal laceration repaired with 3-O Vicryl. PREPROCEDURE DIAGNOSIS: Intrauterine at 39w6d GBS negative RH positive POSTPROCEDURE DIAGNOSIS: Intrauterine at 39w6d, delivered Same as preprocedure Baby 1: gender: Female Presentation: vertex Position: Left Occiput Anterior Placenta delivery description: Spontaneous Cord Vessel Description: 3 Vessels score (1 min): 9 score (5 min): 9 weight: 7 lb 12.376 oz Plan for aftercare: Routine care
[2022-03-27] MEDS: IBUPROFEN 600 MG TABLET PO (23:01)
[2022-03-27] MEDS: ACETAMINOPHEN 325 MG TABLET 650 MG PO (23:02)
[2022-03-27 23:53] VITALS: BP 121/59
[2022-03-28] MEDS: IBUPROFEN 600 MG TABLET PO (06:03)
[2022-03-28] MEDS: ACETAMINOPHEN 325 MG TABLET 650 MG PO (06:04)
[2022-03-28] MEDS: DOCUSATE 100 MG CAPSULE PO (08:42)
[2022-03-28] MEDS: PRENATAL VIT,CALC/IRON/FOLIC 1 TABLET 1 TAB PO (08:42)
--- NOTE | 2022-03-28 08:50 | P.DS_ITS ---
Discharge Providers Provider Date of admission: 03/27/22 20:00 Discharge Date: 03/28/22 Primary care physician: Keesha Kirkpatrick MD Consults: 03/28/22 22:14 Consult to Support Manager Routine Comment: Discharge provider: Monae Sargent MD Summary Hospital Course Date Patient Seen: 03/28/22 Diagnoses: Intrauterine at 39w6d GBS negative RH positive Spontaneous vaginal delivery Hospital Course: The pt presented in active labor and progressed rapidly to complete. She had an of a viable baby girl without complications. A 1st degree perineal lace ration was then repaired. , there were no complications. At the time of discharge she was voiding, ambulating, and passing flatus without difficulty. Her lochia was decreasing appropriately. She was with good latch. Her pain was well controlled. She will f/u in 6 weeks for check. Her plans on vasectomy for contraception, but the pt may desire something to bridge. Peripartum Data Delivery Method: Natural Vaginal Laceration Description: None and Perineal - 1st Degree Episiotomy description: None Procedures: Spontaneous vaginal delivery complications: none Thermal 1: Gender: Female Disposition of : home Discharge Diagnosis (1) Spontaneous vaginal delivery: Status: Acute Status at Discharge Cognitive/behavioral status at discharge: oriented Functional status at discharge: independent ambulation Overall status at discharge: patient is progressing back to baseline Time Spent with Patient Time attestation: Total time spent providing and/or coordinating discharge services: Objective Labs Result Diagrams: 03/27/22 21:05 Labs: Laboratory Results - last 24 hr 03/27/22 03/27/22 03/27/22 21:05 21:05 21:05 WBC 9.8 RBC 4.03 Hgb 11.7 L Hct 34.8 L MCV 86.4 MCH 29.0 MCHC 33.6 RDW 13.8 Plt Count 219 Neut % (Auto) 73.1 Lymph % (Auto) 19.4 L [place] % (Auto) 6.4 Eos % (Auto) 0.5 L Baso % (Auto) 0.6 Neut # (Auto) 7100 H Lymph # (Auto) 1900 [place] # (Auto) 600 Eos # (Auto) 0 Baso # (Auto) 100 SARS-CoV-2 (PCR) Negative Blood Type O Positive Antibody Screen Negative Exam Narrative Exam Narrative: Gen: NAD, sitting comfortably in bed, appears well CV: RRR, no murmurs Resp: clear to auscultation bilaterally Abd: soft, appropriately tender, fundus firm and below the umbilicus, nondistended Ext: no edema Discharge Plan Discharge Plan Patient Disposition: Home Discharge orders & Medications Prescriptions: New acetaminophen 325 mg Tablet 650 mg PO Q6HR PRN (Reason: Pain, Mild (1-3)) Qty: 30 0RF docusate sodium 100 mg Capsule 100 mg PO DAILY Qty: 30 0RF ibuprofen 600 mg Tablet 600 mg PO Q6HR PRN (Reason: Pain, Mild (1-3)) Qty: 30 0RF Continued prenat.vits,karolyn,[id number] Tablet 1 tab PO DAILY Follow up/Referrals: Keesha Kirkaptrick MD [Primary Care Provider] - 6 Weeks Diet/Activity/Treatments Diet: Diet as Tolerated and Regular Skin/Wound/Dressing Care Report to your healthcare provider any signs of infection, such as:: chills, fever, increased pain and unusual drainage Visit Report/Discharge Packet Instructions: DI for Labor and Delivery, Vaginal Visit Report Forms: Patient Portal/API, Stroke Signs & Symptoms Discharge Data Primary Care Provider: Keesha Kirkpatrick
== END 2022-03-28 18:00 | disposition home or self-care (01) | DRG 807 ==
PROVIDERS: Admitting Provider Family Medicine; PCP Obstetrics & Gynecology; Referring Provider Family Medicine; Visit Provider Family Medicine
DX: O70.0 First degree perineal laceration during delivery (principal); Z37.0 Single live birth; Z3A.39 39 weeks gestation of pregnancy; Z67.40 Type O blood, Rh positive; Z20.822 Contact with and (suspected) exposure to COVID-19
CPT/HCPCS: 36415; 59050; 59400; 59409; 85025; 86850; 86900; 86901; 87635; C9803; G0379; J2590